=== PATIENT | male | born 1935 | race Hispanic/Latino ===

== ENCOUNTER → 2017-11-27 | Outpatient (CLI) | payer MEDICARE, OTHER ==
[~2017-11-27] MED LIST: DOXA8TAB81 PO; DULO30CA51 PO; LEVO100T12 PO; LINO1LIQ MC; LOVA40TA2 PO; VERE240SR PO
== END | disposition home or self-care (01) ==
LOC: RAH 11:28
PROVIDERS: ATTEND Internal Medicine
DX: I82.411 Acute embolism and thrombosis of right femoral vein (principal)
CPT/HCPCS: 93971

== ENCOUNTER → 2018-04-14 | Outpatient (CLI) | payer MEDICARE, OTHER | END | disposition home or self-care (01) | LOC: RAH 15:03 | PROVIDERS: ATTEND Internal Medicine | DX: J20.9 Acute bronchitis, unspecified (principal) | CPT/HCPCS: 71046 ==